=== PATIENT | male | born 1945 | race Caucasian/White ===

== ENCOUNTER 2016-12-30 08:15 | Emergency (ER) | payer MEDICARE, BC ==
[~2016-12-30] VITALS: Ht 177.8 cm; Wt 78.0 kg
[2016-12-30] MEDS ORDERED: DUTASTERIDE 0.5 MG CAPSULE PO (08:33)
[2016-12-30] MEDS ORDERED: QUINAPRIL 20 MG TABLET PO (08:33)
[2016-12-30] MEDS ORDERED: CARVEDILOL 6.25 MG TABLET PO (08:33)
[2016-12-30] MEDS ORDERED: EPINEPHRINE-PF 1:1000 1 MG/ML AMPUL IV ONE (08:45)
--- NOTE | 2016-12-30 08:46 | NUR ---
Pt was changing a ceiling light and cover fell, striking him above the lips, small lac, not bleeding. Gave pt d/c instructions, verbalized understanding.
[2016-12-30] MEDS ORDERED: EPINEPHRINE 1 MG/1 ML AMP ONE (08:56)
== END 2016-12-30 08:54 | disposition home or self-care (01) ==
LOC: ER 08:18
DX: S01.81XA Laceration without foreign body of other part of head, initial encounter (principal); I10 Essential (primary) hypertension; X58.XXXA Exposure to other specified factors, initial encounter; Y93.89 Activity, other specified; Y92.89 Other specified places as the place of occurrence of the external cause; Y99.8 Other external cause status
CPT/HCPCS: 12011; 99283; A4663; J0171